=== PATIENT | male | born 1945 | race Caucasian/White ===

== ENCOUNTER 2023-03-11 18:33 | Inpatient (IN) | payer MEDICARE ==
[2023-03-11] MEDS ORDERED: EPINEPHrine 1 MG/ML VIAL ONE (19:35)
[2023-03-11] MEDS ORDERED: Bupivacaine PF 0.5% 30 ML VIAL ONE (19:36)
[2023-03-11] MEDS ORDERED: PROPOFOL 20 ML ONE (19:57)
[2023-03-11] MEDS ORDERED: fentaNYL 50 mcg/mL 1 mL Vial ONE ×2 (19:57→20:35)
[2023-03-11] MEDS ORDERED: Lidocaine 2% PF 5 ML VIAL ONE (19:58)
[2023-03-11] MEDS ORDERED: Rocuronium Bromide 10 MG/ML (10ML VIAL) ONE (20:00)
[2023-03-11] MEDS ORDERED: Glycopyrrolate 0.2 MG/ML 5 ML SYRINGE ONE ×2 (20:19→20:21)
[2023-03-11] MEDS ORDERED: ePHEDrine Sulfate 50 MG/10 ML VIAL ONE (20:22)
[2023-03-11] MEDS ORDERED: Ondansetron PF 4 MG/2 ML Vial ONE (20:35)
[2023-03-11] MEDS ORDERED: Dexamethasone 4 mg/ml Vial ONE (20:35)
[2023-03-11] MEDS ORDERED: Ketorolac Tromethamine 30 MG/ML VIAL ONE (20:35)
[2023-03-11] MEDS ORDERED: Ondansetron PF 4 MG/2 ML Vial IVP PRN (21:12)
[2023-03-11] MEDS ORDERED: hydrALAZINE 20 MG/ML VIAL SLOW IVP PRN (21:12)
[2023-03-11] MEDS ORDERED: Promethazine HCl 25 MG/ML VIAL IM PRN (21:12)
[2023-03-11] MEDS ORDERED: Morphine 4 MG/ML VIAL SLOW IVP PRN (21:12)
[2023-03-11] MEDS ORDERED: Morphine 2 MG/ML VIAL SLOW IVP PRN (21:12)
[2023-03-11] MEDS ORDERED: HYDROcodone/Acetaminophen 10/325 mg Tablet PO PRN (21:12)
[2023-03-11] MEDS ORDERED: Acetaminophen 325 MG TAB PO PRN (21:12)
[2023-03-11] MEDS ORDERED: Ipratropium/Albuterol 3 ML NEB NEB PRN (21:12)
[2023-03-11] MEDS ORDERED: Piperacillin/Tazobactam 3.375 GM in Sodium Chloride 0.9% 100 ML IVPB SCH (21:45)
[2023-03-11] MEDS: Ketorolac Tromethamine 30 MG/ML VIAL IVP SCH (23:59)
[2023-03-12] MEDS: Lactated Ringer's 1,000 ML IV SCH ×3 (04:58→15:40)
[2023-03-12] MEDS: Ketorolac Tromethamine 30 MG/ML VIAL IVP SCH ×3 (05:24→18:08)
[2023-03-12 05:31] VITALS: BMI 25.2
[2023-03-12 06:08] LABS: Hematocrit 39.9 % (38.8-50.0); Hemoglobin 13.3 g/dL (13.5-17.5); Mean Corpuscular HGB CONC 33.3 g/dL (32.0-36.0); Mean Corpuscular Hemoglobin 30.2 pg (27.0-33.0); Mean Corpuscular Volume 90.7 fl (81.2-95.1); Mean Platelet Volume 11.8 fl (7.4-10.4); Platelet Count 164 10x3/uL (150-450); RBC Distribution Width 12.9 % (11.5-14.5); White Blood Cell (WBC) Count 10.1 10x3/uL (3.5-10.5)
[2023-03-12 07:07] LABS: MDiff Complete? YES
[2023-03-12 07:16] LABS: Band 7 % (5-11); Lymphocytes 5 % (21-51); Metamyelocyte 1 % (0-0); Monocytes 1 % (0-10); Neutrophil 86 % (42-75)
[2023-03-12 07:17] LABS: Large Platelets SLIGHT (None Seen); Platelet Adequacy Comment Appears Adequate; RBC Morph Comment Within Normal Limits
[2023-03-12] MEDS: Famotidine 20 MG TAB PO SCH ×2 (08:30→22:33)
[2023-03-12] MEDS: Famotidine/PF 20 mg/2ml Vial SLOW IVP SCH ×2 (08:31→22:33)
[2023-03-12 17:51] VITALS: BP 139/68; TEMP 97.9
== END 2023-03-12 17:45 | disposition home or self-care (01) | DRG 398 ==
LOC: CSHSDC/OP 18:33 → CSHTELE 21:12
PROVIDERS: ADMIT Surgery; ATTEND Surgery
PROC: 0DTJ4ZZ Resection of Appendix, Percutaneous Endoscopic Approach (ICD-10-PCS; principal; 2023-03-11)
DX: K35.80 Unspecified acute appendicitis (principal); N39.0 Urinary tract infection, site not specified; N28.89 Other specified disorders of kidney and ureter; I10 Essential (primary) hypertension; Z98.890 Other specified postprocedural states
CPT/HCPCS: 85025; 88304; 94760; A4649; J0171; J1100; J1885; J2001; J2405; J2704; J3010; J7120; S0020

== ENCOUNTER 2023-04-02 12:30 | Outpatient (CLI) | payer MEDICARE ==
[2023-04-02 14:38] LABS: Hematocrit 44.6 % (38.8-50.0); Hemoglobin 14.7 g/dL (13.5-17.5); Mean Corpuscular Hemoglobin 30.5 pg (27.0-33.0); Mean Corpuscular Volume 92.5 fl (81.2-95.1); Mean Platelet Volume 12.1 fl (7.4-10.4); Platelet Count 204 10x3/uL (150-450); RBC Distribution Width 13.6 % (11.5-14.5); Red Blood Cell (RBC) Count 4.82 10x6/uL (4.32-5.72); White Blood Cell (WBC) Count 5.7 10x3/uL (3.5-10.5)
[2023-04-02 20:35] LABS: Hemoglobin A1c 5.8 % (4.0-6.0)
== END 2023-04-02 12:31 | disposition home or self-care (01) ==
LOC: CSHLAB 12:30
PROVIDERS: ATTEND Surgery
DX: Z01.818 Encounter for other preprocedural examination (principal); C18.1 Malignant neoplasm of appendix
CPT/HCPCS: 82378; 83036; 85027; 93005; 93010

== ENCOUNTER 2023-04-05 09:25 | Inpatient (IN) | payer MEDICARE ==
[2023-04-02 13:27] VITALS: BMI 25.8
[2023-04-05] MEDS ORDERED: Bupivacaine PF 0.5% 30 ML VIAL ONE (11:14)
[2023-04-05] MEDS ORDERED: EPINEPHrine 1 MG/ML VIAL ONE (11:14)
[2023-04-05] MEDS ORDERED: Fentanyl 250 MCG/5 ML VIAL ONE (11:18)
[2023-04-05] MEDS ORDERED: Dexamethasone 20 MG/5 ML VIAL ONE (11:18)
[2023-04-05] MEDS ORDERED: PHENYLEPHRINE-NS 100 MCG/ML 10 ML SYRINGE ONE (11:18)
[2023-04-05] MEDS ORDERED: Rocuronium Bromide 10 MG/ML (10ML VIAL) ONE (11:18)
[2023-04-05] MEDS ORDERED: Midazolam HCl 2 mg/2 ml Vial ONE (11:18)
[2023-04-05] MEDS ORDERED: PROPOFOL 20 ML ONE (11:18)
[2023-04-05] MEDS ORDERED: Lidocaine 1% PF 5 ML VIAL ONE (11:18)
[2023-04-05] MEDS ORDERED: Ondansetron PF 4 MG/2 ML Vial ONE (11:18)
[2023-04-05] MEDS ORDERED: ceFOXitin 1 GM VIAL ONE (11:32)
[2023-04-05] MEDS ORDERED: ePHEDrine Sulfate 50 MG/10 ML VIAL ONE (12:05)
[2023-04-05] MEDS ORDERED: Glycopyrrolate 0.2 MG/ML 5 ML SYRINGE ONE (12:21)
[2023-04-05] MEDS ORDERED: Sterile Water 10 ML VIAL FS SCH (13:45)
[2023-04-05] MEDS ORDERED: Indocyanine Green 25 MG/10 ML VIAL IVP SCH (13:45)
[2023-04-05] MEDS ORDERED: Morphine 4 MG/ML VIAL SLOW IVP PRN (15:04)
[2023-04-05] MEDS ORDERED: hydrALAZINE 20 MG/ML VIAL SLOW IVP PRN (15:04)
[2023-04-05] MEDS ORDERED: Ipratropium/Albuterol 3 ML NEB NEB PRN (15:04)
[2023-04-05] MEDS ORDERED: Promethazine HCl 25 MG/ML VIAL IM PRN (15:04)
[2023-04-05] MEDS ORDERED: Ondansetron PF 4 MG/2 ML Vial IVP PRN (15:04)
[2023-04-05] MEDS ORDERED: Acetaminophen 325 MG TAB PO PRN (16:17)
[2023-04-05] MEDS: Morphine 2 MG/ML VIAL SLOW IVP PRN ×2 (16:54→21:55)
[2023-04-05] MEDS: Ketorolac Tromethamine 30 MG/ML VIAL IVP SCH (18:19)
[2023-04-05] MEDS ORDERED: SODIUM CHLORIDE 0.9% IVPB SCH (20:00)
[2023-04-05] MEDS ORDERED: CEFOXITIN SODIUM IVPB SCH (20:00)
[2023-04-05] MEDS ORDERED: DEXTROSE ISO IVPB SCH (20:00)
[2023-04-05] MEDS: DEXTROSE ISO IVPB SCH (21:50)
[2023-04-05] MEDS: CEFOXITIN SODIUM IVPB SCH (21:50)
[2023-04-05] MEDS: Famotidine 20 MG TAB PO SCH (22:01)
[2023-04-05] MEDS: D5 1/2 NS w/20 mEq KCL 1,000 ML IV SCH (23:02)
[2023-04-06] MEDS: Ketorolac Tromethamine 30 MG/ML VIAL IVP SCH ×5 (00:54→23:56)
[2023-04-06 04:04] LABS: BUN (Urea Nitrogen) 15 mg/dL (8.4-25.7); Calc. Creatinine Clearance 59 mL/min (70-130); Calcium 8.9 mg/dL (7.8-10.44); Chloride 107 mmol/L (98-107); Estimated GFR 65; Glucose 192 mg/dL (83-110); Potassium 4.1 mmol/L (3.5-5.1); Sodium 136 mmol/L (136-145)
[2023-04-06 04:09] LABS: #Monocytes 0.5 10x3/uL (0.0-1.1); #Neutrophils 10.8 10x3/uL (1.5-8.4); %Basophils 0.1 % (0.0-2.0); %Monocytes 4.3 % (0.0-10.0); %Neutrophils 87.4 % (40.0-75.0); Hematocrit 42.8 % (38.8-50.0); Hemoglobin 14.3 g/dL (13.5-17.5); Mean Corpuscular HGB CONC 33.4 g/dL (32.0-36.0); Mean Corpuscular Hemoglobin 30.2 pg (27.0-33.0); Mean Corpuscular Volume 90.5 fl (81.2-95.1); Mean Platelet Volume 11.8 fl (7.4-10.4); Platelet Count 175 10x3/uL (150-450); Red Blood Cell (RBC) Count 4.73 10x6/uL (4.32-5.72); White Blood Cell (WBC) Count 12.4 10x3/uL (3.5-10.5)
[2023-04-06 04:15] LABS: Carbon Dioxide 19 mmol/L (23-31)
[2023-04-06 04:34] LABS: Anion Gap 14 mmol/L (10-20)
[2023-04-06] MEDS: CEFOXITIN SODIUM IVPB SCH (06:44)
[2023-04-06] MEDS: DEXTROSE ISO IVPB SCH (06:44)
[2023-04-06] MEDS: Morphine 2 MG/ML VIAL SLOW IVP PRN (09:33)
[2023-04-06] MEDS: Famotidine 20 MG TAB PO SCH ×2 (09:34→20:06)
[2023-04-06] MEDS: D5 1/2 NS w/20 mEq KCL 1,000 ML IV SCH (09:43)
[2023-04-07] MEDS: Ketorolac Tromethamine 30 MG/ML VIAL IVP SCH (06:12)
[2023-04-07 09:23] VITALS: BP 159/84; TEMP 97.6
[2023-04-07] MEDS: Famotidine 20 MG TAB PO SCH (09:31)
== END 2023-04-07 10:30 | disposition home or self-care (01) | DRG 331 ==
LOC: CSHSDC 09:25 → CSHTELE 09:26
PROVIDERS: ADMIT Surgery; ATTEND Surgery
PROC: 0DTF4ZZ Resection of Right Large Intestine, Percutaneous Endoscopic Approach (ICD-10-PCS; principal; 2023-04-05)
PROC: 8E0W4CZ Robotic Assisted Procedure of Trunk Region, Percutaneous Endoscopic Approach (ICD-10-PCS; 2023-04-05)
DX: C18.1 Malignant neoplasm of appendix (principal); N28.89 Other specified disorders of kidney and ureter; Z79.899 Other long term (current) drug therapy; E78.5 Hyperlipidemia, unspecified; I10 Essential (primary) hypertension; I25.10 Atherosclerotic heart disease of native coronary artery without angina pectoris; M19.90 Unspecified osteoarthritis, unspecified site; Z90.89 Acquired absence of other organs; Z90.49 Acquired absence of other specified parts of digestive tract; Z98.890 Other specified postprocedural states
CPT/HCPCS: 36415; 80048; 85025; 88309; 94760; J0171; J0694; J1100; J1650; J1885; J2250; J2272; J2405; J2704; J3010; J3480; S0020

== ENCOUNTER 2024-12-20 10:52 | Outpatient (CLI) | payer MEDICARE, OTHER ==
[2024-12-20 11:42] LABS: Hematocrit 48.6 % (38.8-50.0); Hemoglobin 16.1 g/dL (13.5-17.5); Mean Corpuscular Hemoglobin 30.4 pg (27.0-33.0); Mean Corpuscular Volume 91.9 fL (81.2-95.1); Platelet Count 146 10x3/uL (150-450); Red Blood Cell (RBC) Count 5.29 10x6/uL (4.32-5.72); White Blood Cell (WBC) Count 6.64 10x3/uL (3.5-10.5)
[2024-12-20 12:56] LABS: Anion Gap 12 mmol/L (10-20); BUN (Urea Nitrogen) 17 mg/dL (8.4-25.7); Calc. Creatinine Clearance 0 mL/min (70-130); Calcium 9.9 mg/dL (7.8-10.44); Carbon Dioxide 23 mmol/L (23-31); Chloride 110 mmol/L (98-107); Glucose 99 mg/dL (83-110); Potassium 4.2 mmol/L (3.5-5.1); Sodium 141 mmol/L (136-145)
== END 2024-12-20 10:53 | disposition home or self-care (01) ==
LOC: CSHLAB 10:52
PROVIDERS: ATTEND Surgery
DX: Z01.818 Encounter for other preprocedural examination (principal)
CPT/HCPCS: 80048; 85027; 93005; 93010

== ENCOUNTER 2024-12-21 09:18 | Day surgery (SDC) | payer MEDICARE, OTHER ==
[2024-12-20 11:27] VITALS: BMI 26.6
[2024-12-21] MEDS ORDERED: Bupivacaine HCl 0.5%/Epinephrine 1:200,000/PF 30 ml Vial ONE (12:49)
[2024-12-21] MEDS ORDERED: CEFAZOLIN 2 GM VIAL ONE (12:56)
[2024-12-21] MEDS ORDERED: PROPOFOL 20 ML ONE (13:03)
[2024-12-21] MEDS ORDERED: Lidocaine 1% PF 5 ML VIAL ONE (13:04)
[2024-12-21] MEDS ORDERED: Ondansetron PF 4 MG/2 ML Vial ONE (13:04)
== END 2024-12-21 15:00 | disposition home or self-care (01) ==
LOC: CSHSDC 09:18
PROVIDERS: ATTEND Surgery
PROC: 0JH60WZ Insertion of Totally Implantable Vascular Access Device into Chest Subcutaneous Tissue and Fascia, Open Approach (ICD-10-PCS; principal; 2024-12-21)
DX: C18.1 Malignant neoplasm of appendix (principal); C78.7 Secondary malignant neoplasm of liver and intrahepatic bile duct; I10 Essential (primary) hypertension; E78.5 Hyperlipidemia, unspecified; Z98.41 Cataract extraction status, right eye; Z98.42 Cataract extraction status, left eye; Z90.49 Acquired absence of other specified parts of digestive tract; Z90.89 Acquired absence of other organs; Z90.79 Acquired absence of other genital organ(s); Z79.899 Other long term (current) drug therapy
CPT/HCPCS: 71045; A6258; C1788; J1642; J2405; J2704